=== PATIENT | male | born 1985 | race Caucasian/White ===

== ENCOUNTER 2017-11-24 01:03 | Emergency (ER) | payer OTHER ==
[~2017-11-24] VITALS: Ht 180.3 cm; Wt 154.7 kg
[2017-11-24 01:28] VITALS: BP 143/87
--- NOTE | 2017-11-24 01:50 | ED GENERAL ADULT ---
History of Present Illness General Chief Complaint: Lower Extremity Problems Stated Complaint: BIBA C/C LOWER BACK AND RT LEG PAIN Source: patient Exam Limitations: no limitations Vital Signs & Intake/Output Vital Signs & Intake/Output Vital Signs Date Time Temp Pulse Resp B/P B/P Pulse O2 O2 Flow FiO2 Mean Ox Delivery Rate 11/24 0147 Room Air 11/24 0128 97.6 103 20 143/87 97 Room Air Room Air Allergies Coded Allergies: MDX - Latex (01/23/08) MDX - Olanzapine (01/23/08) MDX - Paliperidone (01/23/08) Uncoded Allergies: Allergy Other LATEX Med Allergies ZYPREXA/?SEIZURES,INVEGA/?SEIZURES ANTI PSYCH MEDS Reconcile Medications Cyclobenzaprine HCl 10 MG TABLET 1 TAB PO 4 TIMES/DAY PRN MUSCLE SPASM Ibuprofen 800 MG TABLET 1 TAB PO TID PRN pain Triage Note: 32YO MALE TO TRIAGE VIA AMB FROM HOME W/CO CRAMPING IN L SHOULDER X MONTHS. ASLO CO R LEG PAIN SINCE SUNDAY. STATES "HE SLEEPS ON A BLOWUP MATRESS AND WAS SLEEPING WRONG ON IT" AMBULATING IN WR AND TO REGISTRATION W/OUT ANY DIFFICULTY. Triage Nurses Notes Reviewed? yes Onset: Gradual Duration: day(s):, waxing and waning Timing: recent history Injury Environment: home Severity: mild HPI: -year-old gentleman history of schizoaffective disorder with psychosis presents with right upper thigh discomfort and right hip pain, worse with movement and palpation. He notes also left shoulder girdle discomfort, worse with movement. He shares that he has had left shoulder pain for several months. He has had the right thigh pain for the past 6 days. His pain is reproducible with patient and with movement. His pain is improved with rest. He has no lower extremity swelling, chest pain, shortness of breath, diaphoresis. Past History Travel History Traveled to [place] past 21 day No Medical History Any Pertinent Medical History? see below for history Neurological: NONE EENT: NONE Cardiovascular: hypertension, hyperlipidemia Respiratory: obstructive sleep apnea Gastrointestinal: NONE Hepatic: NONE Renal: NONE Musculoskeletal: NONE Psychiatric: psychosis, schizo affective disorder, schizophrenia Endocrine: NONE Blood Disorders: NONE Cancer(s): NONE [employer]PER[employer]OR/Reproductive: NONE Surgical History Surgical History: none Psychosocial History Who do you live with Patient/Self Services at Home Nursing What is your primary language Peruvian Tobacco Use: Never used ETOH Use: denies use Family History Hx Contributory? No Review of Systems Review of Systems Constitutional: Reports: no symptoms. EENTM: Reports: no symptoms. Respiratory: Reports: no symptoms. Cardiovascular: Reports: no symptoms. GI: Reports: no symptoms. Genitourinary: Reports: no symptoms. Musculoskeletal: Reports: no symptoms. Skin: Reports: no symptoms. Neurological/Psychological: Reports: no symptoms. Hematologic/Endocrine: Reports: no symptoms. Immunologic/Allergic: Reports: no symptoms. All Other Systems: Reviewed and Negative Physical Exam Physical Exam General Appearance: well developed/nourished, no apparent distress Comments: Review of Systems - except as otherwise noted in HPI Review of Systems Constitutional:no symptoms. EENTM:no symptoms. Respiratory:no symptoms. Cardiovascular:no symptoms. GI:no symptoms. Genitourinary:no symptoms. Musculoskeletal:no symptoms. Skin:no symptoms. Neurological/Psychological:no symptoms. Hematologic/Endocrine:no symptoms. Immunologic/Allergic:no symptoms. All Other Systems: Reviewed and Negative Physical Exam Physical Exam General Appearance: well developed/nourished, no apparent distress Head: atraumatic, normal appearance Eyes: Bilateral: normal appearance. Ears, Nose, Throat: normal pharynx, normal ENT inspection Neck: normal inspection, supple, full range of motion Respiratory: normal breath sounds, chest non-tender, no respiratory distress, quiet respiration, lungs clear Cardiovascular: regular rate/rhythm Gastrointestinal: normal bowel sounds, soft, non-tender, no organomegaly Back: normal inspection, normal range of motion Extremities: normal inspection, normal capillary refill, normal range of motion, mild right thigh musculoskeletal tenderness without edema, exacerbated with movement. Left shoulder muscle girdle tenderness with negative rotator cuff maneuvers. No deformity. Strength and light touch and DTRs are intact in upper and lower extremities Neurologic/Psych: no motor/sensory deficits, awake, alert, oriented x 3 Skin: intact, normal color, warm/dry Core Measures ACS in differential dx? No CVA/TIA Diagnosis: No Sepsis Present: No Sepsis Focused Exam Completed? No Progress Differential Diagnoses I considered the following diagnoses in my evaluation of the patient: Muscle skeletal pain versus rotator cuff tendinitis versus other. Plan of Care: Current Medications Sig/Khoa Start time Last Medication Dose Stop Time Status Admin Acetaminophen 975 MG ONCE ONE 11/24 0200 UNVr (Tylenol) 11/24 200 Cyclobenzaprine HCl 10 MG ONCE ONE 11/24 199 UNVr (Flexeril 10MG Tab) 11/24 200 Ketorolac 60 MG ONCE ONE 11/24 199 UNVr Tromethamine 11/24 200 (Toradol) Initial ED EKG: none Departure Departure Disposition: HOME OR SELF CARE Condition: Stable Clinical Impression Primary Impression: Musculoskeletal pain Referrals: Lamine Morfin APRN (PCP/Family) Departure Forms: Customer Survey General Discharge Information Prescriptions: Current Visit Scripts Ibuprofen 1 TAB PO TID PRN pain #30 TAB Cyclobenzaprine HCl 1 TAB PO 4 TIMES/DAY PRN MUSCLE SPASM #30 TAB Ref 1 Comments Patient given a dose of Toradol 60 mg IM as well as Tylenol. Patient with benign exam and is safe for discharge. Critical Care Note Critical Care Note Critical Care Time: non-applicable
[2017-11-24] MEDS ORDERED: IBUPROFEN800 M1 PO (01:51)
[2017-11-24] MEDS ORDERED: CYCLOBENZAPRINE10 M1 PO (01:51)
== END 2017-11-24 02:08 ==
LOC: ERH 01:03
DX: M79.1 Myalgia (principal)
CPT/HCPCS: 96372; J1885